=== PATIENT | male | born 1955 | race Caucasian/White ===

== ENCOUNTER 2021-09-12 02:09 | Observation (INO) ==
[2021-09-12] MEDS ORDERED: Tdap (Boostrix) Vaccine 0.5 ML SYRINGE IM ONE (02:31)
[2021-09-12] MEDS ORDERED: 0.9 % Sodium Chloride 1,000 ML IV ONE (03:01)
[2021-09-12 03:05] LABS: Basophils % 0.2 %; Eosinophils % 0.2 %; Hematocrit 37.3 % (37.5-50.1); Hemoglobin 12.5 g/dL (12.9-16.9); Immature Granulocytes % 0.3 % (0-4); Lymphocytes # 1.6 K/mcL (0.6-4.6); Lymphocytes % 13.2 %; Mean Corpuscular HGB Conc 33.5 g/dL (31.6-35.5); Mean Corpuscular Hemoglobin 30.6 pg (28.0-33.3); Mean Corpuscular Volume 91.2 fL (83.0-100.0); Monocytes # 1.2 K/mcL (0.0-1.3); Monocytes % 9.6 %; Neutrophils # 9.4 K/mcL (1.6-8.9); Platelet Count 312 K/mcL (140-400); Red Blood Count 4.09 M/mcL (4.19-5.50); Red Cell Distribution Width 13.2 % (11.5-14.5); Segmented Neutrophils % 76.5 %; White Blood Count 12.2 K/mcL (4.3-11.1)
[2021-09-12 03:17] LABS: INR 1.2; Prothrombin Time 13.6 Seconds (9.4-12.1)
[2021-09-12 03:18] LABS: Alanine Aminotransferase 12 Units/L (7-52); Albumin 2.8 g/dL (3.5-5.7); Albumin/Globulin Ratio 0.8 (1.1-2.2); Alkaline Phosphatase 166 Units/L (34-104); Aspartate Amino Transferase 18 Units/L (13-39); BUN/Creatinine Ratio 7 (6-26); Bilirubin,Direct 0.2 mg/dL (0.0-0.2); Bilirubin,Indirect 0.6 mg/dL (0.0-1.0); Bilirubin,Total 0.8 mg/dL (0.3-1.0); Blood Urea Nitrogen 4 mg/dL (8-23); Calcium 8.6 mg/dL (8.6-10.3); Carbon Dioxide 26 mEq/L (23-29); Chloride 98 mEq/L (98-107); Globulin 3.6 g/dL (2.4-3.5); Glucose 136 mg/dL (70-105); Osmolality,Calculated 279 (280-300); Potassium 3.2 mEq/L (3.5-5.1); Sodium 135 mEq/L (136-145); Total Protein 6.4 g/dL (6.4-8.9); Troponin I < 0.03 ng/mL (< 0.04); eGFR For African Americans > 60 (> 60); eGFR For Non-African Americans > 60 (> 60)
[2021-09-12 03:19] LABS: Activated Partial Thrombo Time 37.3 Seconds (26.0-36.0)
[2021-09-12 03:32] LABS: Thyroid Stimulating Hormone 1.653 mcIU/mL (0.340-5.600)
[2021-09-12] MEDS ORDERED: Isovue-370 500 ML BOTTLE IVP ONE (03:38)
[2021-09-12] MEDS ORDERED: *HR* Heparin 5,000 UNIT/ML VIAL IVP ONE ×2 (04:24→05:32)
[2021-09-12] MEDS ORDERED: *HR* Heparin 5,000 UNIT/ML VIAL IVP PRN ×4 (04:24→05:32)
[2021-09-12] MEDS ORDERED: Heparin 25,000UNIT/250ML 1/2NS 25,000 UNIT/250 ML IV.SOLN IVC SCH ×4 (04:30→22:15)
[2021-09-12 04:34] LABS: Bilirubin,Urine Negative (Negative); Blood,Urine Negative (Negative); Clarity,Urine Clear (Clear); Color,Urine Colorless (Yellow); Glucose,Urine (UA) Normal (Normal); Ketones,Urine Negative (Negative); Leukocyte Esterase,Urine Negative (Negative); Nitrite,Urine Negative (Negative); PH,Urine 6.5 pH Units (5.0-8.0); Protein,Urine Negative (Neg-Trace); Specific Gravity,Urine < 1.005 (1.010-1.025); Urobilinogen,Urine Normal (Normal)
[2021-09-12] MEDS ORDERED: Naloxone 0.4 MG/ML INJ IVP PRN (05:05)
[2021-09-12] MEDS ORDERED: *HR* Promethazine 25 MG/ML VIAL IM PRN (05:05)
[2021-09-12] MEDS ORDERED: *HR* HYDROcodone/Acet 5/325 mg TABLET PO PRN (05:05)
[2021-09-12] MEDS ORDERED: Melatonin 3 MG TABLET PO PRN (05:05)
[2021-09-12] MEDS ORDERED: Ondansetron 4 MG/2 ML VIAL IVP PRN (05:05)
[2021-09-12] MEDS ORDERED: Acetaminophen 325 MG TABLET PO PRN (05:05)
[2021-09-12] MEDS ORDERED: Apixaban 5 MG TABLET PO SCH (05:07)
[2021-09-12] MEDS: Ringers Solution, Lactated 1,000 ML IVC SCH ×2 (05:48→15:58)
[2021-09-12] MEDS ORDERED: D5% in Water 1,000 ML IVC PRN (05:52)
[2021-09-12] MEDS ORDERED: Dextrose 4 GM Chewable Tablets PO PRN ×2 (05:52)
[2021-09-12] MEDS ORDERED: *HR* Dextrose 50 % in Water (Syg) 50 ML SYRINGE IVP PRN (05:52)
[2021-09-12] MEDS: Insulin LISPRO 300 UNITS/3 ML VIAL SUBQ SCH ×3 (07:25→18:06)
[2021-09-12] MEDS ORDERED: *HR* OxyCODONE Immed Rel 5 MG TABLET PO PRN (10:12)
[2021-09-12] MEDS ORDERED: E-Z-PAQUE (BARIUM SULF) SUSP 1 BOTTLE PO ONE (15:40)
[2021-09-12] MEDS: Gabapentin 400 MG CAPSULE PO SCH ×2 (15:58→21:08)
[2021-09-12] MEDS ORDERED: SODIUM CHLORIDE/NAHCO3/KCL/PEG 4,000 ML SOLN.RECON PO ONE (17:00)
[2021-09-12] MEDS: Morphine Sulfate ER (12 HR) 30 MG TABLET.ER PO SCH (18:07)
[2021-09-12] MEDS ORDERED: lisinopriL 5 MG TABLET PO SCH (21:00)
[2021-09-13] MEDS: Insulin LISPRO 300 UNITS/3 ML VIAL SUBQ SCH ×3 (00:04→11:42)
[2021-09-13 05:07] LABS: Hematocrit 30.8 % (37.5-50.1); Mean Corpuscular HGB Conc 34.1 g/dL (31.6-35.5); Mean Corpuscular Hemoglobin 31.3 pg (28.0-33.3); Mean Corpuscular Volume 91.7 fL (83.0-100.0); Mean Platelet Volume 10.7 fL (9.4-12.4); Platelet Count 286 K/mcL (140-400); Red Blood Count 3.36 M/mcL (4.19-5.50); White Blood Count 10.5 K/mcL (4.3-11.1)
[2021-09-13 05:14] LABS: Hemoglobin 10.5 g/dL (12.9-16.9)
[2021-09-13 05:16] LABS: Blood Urea Nitrogen 3 mg/dL (8-23); Carbon Dioxide 25 mEq/L (23-29); Chloride 108 mEq/L (98-107); Potassium 3.5 mEq/L (3.5-5.1); Sodium 141 mEq/L (136-145)
[2021-09-13 05:17] LABS: BUN/Creatinine Ratio 6 (6-26); Glucose 93 mg/dL (70-105); Osmolality,Calculated 288 (280-300); eGFR For African Americans > 60 (> 60); eGFR For Non-African Americans > 60 (> 60)
[2021-09-13] MEDS: Morphine Sulfate ER (12 HR) 30 MG TABLET.ER PO SCH (06:09)
[2021-09-13] MEDS: Gabapentin 400 MG CAPSULE PO SCH ×2 (09:56→14:50)
[2021-09-13] MEDS ORDERED: Apixaban 5 MG TABLET PO SCH (14:00)
[2021-09-13 15:38] VITALS: BP 90/58; PULSE 74; TEMP 97.7; O2SAT 93
[2021-09-13] MEDS ORDERED: *HR* Phenylephrine 10 MG/ML VIAL IVC ONE (16:36)
[2021-09-13] MEDS ORDERED: Lidocaine -MPF 2% 5 ML VIAL SQ ONE (16:36)
[2021-09-13] MEDS ORDERED: *HR* Propofol 500 MG/50 ML BOTTLE IVP ONE (16:36)
[2021-09-16] MEDS ORDERED: Ergocalciferol (VIT D2) 50,000 UNIT (1.25MG) CAP PO SCH (09:00)
== END 2021-09-13 16:37 | disposition home or self-care (01) ==
LOC: 2ANU 02:09 → EMEROOARM 02:09 → SUATTDRO 05:15 → 2ANU 06:10
PROVIDERS: ADMIT Internal Medicine; ATTEND Internal Medicine
PROC: ENDOEBX (2021-09-13 13:00)